=== PATIENT | male | born 1980 ===

== ENCOUNTER → 2023-07-01 | Outpatient (CLI) | payer MEDICAID | END | disposition home or self-care (01) | LOC: Rad HDHVI 15:10 | PROVIDERS: ATTEND Internal Medicine Cardiovascular Disease | DX: I10 Essential (primary) hypertension (principal) | CPT/HCPCS: 93306 ==

== ENCOUNTER → 2023-07-05 | Outpatient (CLI) | payer MEDICAID ==
[~2023-07-05] VITALS: Ht 182.9 cm; Wt 117.9 kg
== END | disposition home or self-care (01) ==
LOC: Rad HDHVI 12:38
PROVIDERS: ATTEND Internal Medicine Cardiovascular Disease
DX: R07.89 Other chest pain (principal); I10 Essential (primary) hypertension; I48.91 Unspecified atrial fibrillation; E78.00 Pure hypercholesterolemia, unspecified; Z82.49 Family history of ischemic heart disease and other diseases of the circulatory system
CPT/HCPCS: 78452; 93017; 96374; A9500